=== PATIENT | female | born 1980 | race Caucasian/White ===

== ENCOUNTER 2022-10-23 10:35 | Outpatient (OUT) | payer OTHER, SELFPAY ==
[2022-10-23 11:46] LABS: Anion Gap 12.3; BUN Creatinine Ratio 14.1; Calcium 9.4 mg/dL (8.5-10.1); Carbon Dioxide 27.8 mmol/L (21.0-32.0); Chloride 103 mmol/L (98-107); Estimated GFR (African America >60 (>=60); Estimated GFR (Non-African Ame >60 (>=60); Glucose 108 mg/dL (74-106); Potassium 4.1 mmol/L (3.5-5.1); Sodium 139 mmol/L (136-145)
[2022-10-23 12:12] LABS: Estimated Average Glucose 111 mg/dL; Glycohemoglobin A1C 5.5 % (4.5-6.2)
== END 2022-10-23 10:36 | disposition home or self-care (01) ==
LOC: LAB 10:42
PROVIDERS: PCP Family Medicine; Visit Provider Nurse Practitioner
DX: E11.65 Type 2 diabetes mellitus with hyperglycemia (principal)
CPT/HCPCS: 36415; 80048; 83036

== ENCOUNTER 2023-03-27 08:23 | Outpatient (OUT) | payer OTHER, SELFPAY ==
[2023-03-27 09:04] LABS: Basophils Absolute Auto 0.1 10^3/uL (0.0-0.1); Basophils Percent Auto 1.4 % (0.2-2.0); Eosinophils Absolute Auto 0.2 10^3/uL (0.0-0.7); Eosinophils Percent Auto 2.3 % (0.9-7.0); Hematocrit 45.5 % (36.0-48.0); Hemoglobin 14.5 g/dL (12.0-16.0); Immature Granulocytes Abs Auto 0.02 10^3/uL (0.00-0.03); Immature Granulocytes Pct Auto 0.2 % (0.0-0.5); Lymphocytes Absolute Auto 2.2 10^3/uL (1.2-3.8); Lymphocytes Percent Auto 23.3 % (20.5-60.0); Mean Corpuscular HGB Conc 31.9 g/dL (29.9-35.2); Mean Corpuscular Hemoglobin 28.4 pg (26.7-34.0); Mean Platelet Volume 10.2 fL (9.5-13.5); Monocytes Absolute Auto 0.4 10^3/uL (0.3-0.8); Monocytes Percent Auto 4.7 % (1.7-12.0); Neutrophils Absolute Auto 6.4 10^3/uL (1.4-6.5); Neutrophils Percent Auto 68.1 % (43.0-75.0); Platelet Count 271 10^3/uL (150-450); Red Blood Count 5.11 10^6/uL (4.20-5.40); Red Cell Distribution Width 12.6 % (11.0-15.0); White Blood Count 9.4 10^3/uL (4.0-11.0)
[2023-03-27 09:05] LABS: Bilirubin Urine NEGATIVE (NEGATIVE); Blood Urine NEGATIVE (NEGATIVE); Clarity Urine CLEAR (CLEAR); Color Urine YELLOW (YELLOW); Glucose Urine UA NEGATIVE (NEGATIVE); Ketones Urine NEGATIVE (NEGATIVE); Leukocyte Esterase Urine NEGATIVE (NEGATIVE); Nitrite Urine NEGATIVE (NEGATIVE); Protein Urine NEGATIVE (NEG/TRACE); Specific Gravity Urine >=1.030 (1.005-1.025); Urobilinogen Urine 0.2 EU/dL (0.2-1.0)
[2023-03-27 09:18] LABS: Microalbumin Urine Random 1.7 mg/dL (<=30.0)
[2023-03-27 09:36] LABS: Bacteria Urine TRACE #/HPF (NONE SEEN); Cast Seen? NONE SEEN #/LPF (NONE SEEN); Crystals Seen? None Seen #/HPF (None Seen); Mucus Urine NONE SEEN (NONE SEEN); RBC Urine 0-2 #/HPF (0-2); Squamous Epithelial Cell Urine FEW #/LPF (NONE/RARE); WBC Urine 0-2 #/HPF (NONE SEEN)
[2023-03-27 11:02] LABS: Estimated Average Glucose 137 mg/dL; Glycohemoglobin A1C 6.4 % (4.5-6.2)
[2023-03-27 12:15] LABS: Alanine Aminotransferase 59 U/L (14-59); Albumin Globulin Ratio 0.9; Albumin Level 3.8 g/dL (3.4-5.0); Alkaline Phosphatase 65 U/L (46-116); Anion Gap 12.4; Aspartate Amino Transferase 25 U/L (15-37); Bilirubin Total 0.5 mg/dL (0.2-1.0); Calcium 8.7 mg/dL (8.5-10.1); Carbon Dioxide 28.3 mmol/L (21.0-32.0); Chloride 103 mmol/L (98-107); Chol HDL Ratio 4.8; Cholesterol 169 mg/dL (<=200); Estimated GFR (African America >60 (>=60); Estimated GFR (Non-African Ame >60 (>=60); Glucose 120 mg/dL (74-106); HDL Cholesterol 35 mg/dL (40-60); Potassium 3.7 mmol/L (3.5-5.1); Sodium 140 mmol/L (136-145); Thyroid Stimulating Hormone 2.398 uIU/mL (0.358-3.740); Total Protein 7.8 g/dL (6.4-8.2); Triglycerides 254 mg/dL (<=150); VLDL CHOLESTEROL 50.8 mg/dL
== END 2023-03-27 08:24 | disposition home or self-care (01) ==
LOC: LAB 08:27
PROVIDERS: PCP Family Medicine; Visit Provider Nurse Practitioner
DX: E11.65 Type 2 diabetes mellitus with hyperglycemia (principal); E78.5 Hyperlipidemia, unspecified; E61.1 Iron deficiency
CPT/HCPCS: 36415; 80053; 80061; 81001; 82043; 82728; 83036; 83540; 84443; 85025

== ENCOUNTER 2023-07-06 07:38 | Outpatient (OUT) | payer OTHER, SELFPAY ==
--- OUTSIDE RECORDS SUMMARY | 2023-07-06 07:42 | XMS_ITS | CCD ---
Author Name Unknown Address [address] [place] [address] Organization [facility] Care Team Providers Care Grocery Checker Name Role Phone RAYMOND MAR Unavailable Unavailabl e AICHHOLZ, WIRE STRIPPING MACHINE OPERATOR SHANICE Attending Unavailable AICHHOLZ, WIRE STRIPPING MACHINE OPERATOR SHANICE Admitting Unavailable AICHHOLZ, WIRE STRIPPING MACHINE OPERATOR SHANICE Primary Care Unavailable AICHHOLZ, WIRE STRIPPING MACHINE OPERATOR SHANICE Consulting Unavailable AICHHOLZ, WIRE STRIPPING MACHINE OPERATOR SHANICE Consulting Unavailable AICHHOLZ, WIRE STRIPPING MACHINE OPERATOR SHANICE Attending Unavailable AICHHOLZ, WIRE STRIPPING MACHINE OPERATOR SHANICE Admitting Unavailable AICHHOLZ, WIRE STRIPPING MACHINE OPERATOR SHANICE Primary Care Unavailable AICHHOLZ, WIRE STRIPPING MACHINE OPERATOR SHANICE Consulting Unavailable AICHHOLZ, WIRE STRIPPING MACHINE OPERATOR SHANICE Attending Unavailable AICHHOLZ, WIRE STRIPPING MACHINE OPERATOR SHANICE Admitting Unavailable AICHHOLZ, WIRE STRIPPING MACHINE OPERATOR SHANICE Primary Care Unavailable AICHHOLZ, WIRE STRIPPING MACHINE OPERATOR SHANICE Attending Unavailable AICHHOLZ, WIRE STRIPPING MACHINE OPERATOR SHANICE Admitting Unavailable AICHHOLZ, WIRE STRIPPING MACHINE OPERATOR SHANICE Primary Care Unavailable Aichholz CLIENT SERVICES MANAGER, Shanice Unavailable Raymond Mar MD Primary Care Provider AICHHOLTiffani, SHANICE Attending Unavailable Allergies Allergy Classification Reported Allergen(s) Allergy Type Date of Onset Reaction(s) Facility (3 sources) Acetaminophen Drug Allergy 4 GI intolerance [facility] Medications Current Medications Medication Drug Class(es) Dates Sig (Normalized) Sig (Original) atorvastatin 10 mg oral tablet (5 sources) HMG-CoA Reductase Inhibitor Start: 02-25-2023 End: 09-10-2023 take 1 tablet by mouth in the morning atorvastatin (Lipitor) 10 MG tablet Indications: Type 2 diabetes mellitus treated without insulin (CMS/HCC) Take 1 tablet (10 mg) by mouth in the morning. Take 10 mg by mouth in the morning.. 90 tablet 1 06/12/2023 09/10/2023 Active cetirizine hydrochloride 10 mg oral tablet (3 sources) Histamine-1 Receptor Antagonist Start: 10-19-2022 take 1 tablet by mouth in the morning cetirizine (ZyrTEC) 10 MG tablet Take 10 mg by mouth in the morning. 0 10/19/2022 Active 0.5 ml dulaglutide 1.5 mg/ml auto-injector (5 sources) GLP-1 Receptor Agonist Start: 03-28-2023 End: 09-04-2023 inject 0.75 mg by subcutaneous injection every week, then inject 0.75 mg by subcutaneous injection every week dulaglutide (Trulicity) 0.75 MG/0.5ML solution pen-injector Indications: Type 2 diabetes mellitus treated without insulin (CMS/HCC) Inject 0.75 mg under the skin 1 (one) time per week Inject 0.75 mg under the skin 1 (one) time per week for 28 days. 12 each 1 06/12/2023 09/04/2023 Active ferrous sulfate 325 mg oral tablet (3 sources) Start: 07-25-2022 take 1 tablet by mouth at mealtime FeroSul 325 (65 Fe) MG tablet Take 325 mg by mouth in the morning. Take with meals. 0 07/25/2022 Active ketoconazole 20 mg/ml medicated shampoo (3 sources) Azole Antifungal Start: 03-08-2023 ketoconazole (NIZOral) 2 % shampoo Apply 1 application topically 2 (two) times a week 0 03/08/2023 Active lisinopril 5 mg oral tablet (5 sources) Angiotensin Converting Enzyme Inhibitor Start: 06-27-2022 End: 09-10-2023 take 1 tablet by mouth in the morning lisinopril 5 MG tablet Indications: Type 2 diabetes mellitus treated without insulin (CMS/HCC) Take 1 tablet (5 mg) by mouth in the morning. Take 5 mg by mouth in the morning.. 90 tablet 1 06/12/2023 09/10/2023 Active metFORMIN hydrochloride 500 mg oral tablet (3 sources) Biguanide Start: 05-10-2023 take 1 tablet by mouth in the morning metFORMIN (Glucophage) 500 MG tablet Indications: Type 2 diabetes mellitus without complication, without long-term current use of insulin (CMS/HCC) Take 1 tablet (500 mg) by mouth in the morning and 1 tablet (500 mg) before bedtime. 60 tablet 3 05/10/2023 Active omeprazole 40 mg delayed release oral capsule (5 sources) Proton Pump Inhibitor Start: 09-20-2022 End: 09-10-2023 take 1 capsule by mouth in the morning omeprazole (PriLOSEC) [address] capsule Indications: GERD without esophagitis Take 1 capsule (40 mg) by mouth in the morning. Take before meals. Take 40 mg by mouth in the morning. Take before meals.. 90 capsule 1 06/12/2023 09/10/2023 Active Problems Active Problems Problem Classification Problem Date Documented Date Episodic/Chronic Abdominal hernia (3 sources) Umbilical hernia; Translations: [Umbilical hernia without obstruction or gangrene] Onset: 06-12-2023 06-12-2023 Episodic Diabetes mellitus with complications (4 sources) Type 2 diabetes mellitus with hyperglycemia; Translations: [TYPE 2 DM W/HYPERGLYCEMIA] Onset: 05-23-2022 Chronic Diabetes mellitus without complication (7 sources) Type 2 diabetes mellitus without complication; Translations: [Type 2 diabetes mellitus without complications] Onset: 05-10-2023 05-10-2023 Chronic Disorders of lipid metabolism (3 sources) Dyslipidemia; Translations: [Hyperlipidemia, unspecified] Onset: 06-12-2023 06-12-2023 Chronic Esophageal disorders (5 sources) Gastroesophageal reflux disease without esophagitis; Translations: [Gastro-esophageal reflux disease without esophagitis] Onset: 06-12-2023 06-12-2023 Chronic Malaise and fatigue (1 source) Other fatigue; Translations: [OTHER FATIGUE] Onset: 05-24-2022 Episodic Nutritional deficiencies (3 sources) Iron deficiency; Translations: [Iron deficiency] Onset: 06-12-2023 06-12-2023 Episodic Other nutritional; endocrine; and metabolic disorders (5 sources) Body mass index 30+ - obesity; Translations: [Obesity, unspecified] Onset: 06-12-2023 06-12-2023 Chronic Other screening for suspected conditions (not mental disorders or infectious disease) (7 sources) Abnormal results of thyroid function studies; Translations: [Thyroid function tests abnormal] Onset: 07-27-2021 06-12-2023 Episodic Other upper respiratory disease (3 sources) Allergic rhinitis; Translations: [Allergic rhinitis, unspecified] Onset: 06-12-2023 06-12-2023 Chronic Past or Other Problems Problem Classification Problem Date Documented Date Episodic/Chronic Noninfectious gastroenteritis (1 source) Noninfective gastroenteritis and colitis, unspecified; Translations: [Noninfective gastroenteritis and colitis, unspecified] Onset: 06-29-2017 Episodic Results Test Name Value Interpretation Reference Range Facility CBC AUTO DIFFon 05-23-2022 BASO # 0.1 103/ul Normal 0.0-0.1 Comment on above: Performed By: #### F T4 #### [facility] [address] [address] [address] Eulogio Gil Basophils/100 WBC (Bld) 1.4 % Normal 0.2-2.0 Comment on above: Performed By: #### F T4 #### [facility] [address] [place] [address] Dr. Eulogio Gil EO # 0.2 103/ul Normal 0.0-0.7 [facility] Comment on above: Performed By: #### F T4 #### [facility] [address] [address] [address] Eulogio Gil Eosinophils/100 WBC (Bld) 1.7 % Normal 0.9-7.0 Comment on above: Performed By: #### F T4 #### [facility] [address] [place] [address] Dr. Eulogio Gil Erythrocyte distribution width (RBC) [Ratio] 12.6 % Normal 11.0-15.0 [facility] Comment on above: Performed By: #### F T4 #### [facility] [address] [place] [address] Dr. Eulogio Gil Hematocrit (Bld) [Volume fraction] 48.2 % Critically high 36.0-48.0 Comment on above: Performed By: #### F T4 #### [facility] [address] [place] [address] Dr. Eulogio Gil Hemoglobin (Bld) [Mass/Vol] 15.4 g/dL Normal 12.0-16.0 Comment on above: Performed By: #### F T4 #### [facility] [address] [place] [address] Dr. Eulogio Gil IG # 0.04 10e3/ul Critically high 0.00-0.03 [facility] Comment on above: Performed By: #### F T4 #### [facility] [address] [place] [address] Dr. Eulogio Gil IG % 0.4 % Normal 0.0-0.5 Comment on above: Performed By: #### F T4 #### [facility] [address] [place] [address] Dr. Eulogio Gil LYMPH # 2.0 103/ul Normal 1.2-3.8 Comment on above: Performed By: #### F T4 #### [facility] [address] [place] [address] Dr. Eulogio Gil Lymphocytes/100 WBC (Bld) 20.0 % Critically low 20.5-60.0 Comment on above: Performed By: #### F T4 #### [facility] [address] [place] [address] Dr. Eulogio Gil MANUAL DIFF REQ NO Normal [facility] Comment on above: Performed By: #### F T4 #### [facility] [address] [place] [address] Dr. Eulogio Gil MCH (RBC) [Entitic mass] 27.4 pg Normal 26.7-34.0 Comment on above: Performed By: #### F T4 #### [facility] [address] [place] [address] Dr. Eulogio Gil MCHC (RBC) [Mass/Vol] 32.0 g/dL Normal 29.9-35.2 [facility] Comment on above: Performed By: #### F T4 #### [facility] [address] [place] [address] Dr. Eulogio Gil MCV (RBC) [Entitic vol] 85.6 fL Normal 81.0-99.0 Comment on above: Performed By: #### F T4 #### [facility] [address] [place] [address] Dr. Eulogio Gil MONO # 0.4 103/ul Normal 0.3-0.8 [facility] Comment on above: Performed By: #### F T4 #### [facility] [address] [place] [address] Dr. Eulogio Gil Monocytes/100 WBC (Bld) 4.3 % Normal 1.7-12.0 [facility] Comment on above: Performed By: #### F T4 #### [facility] [address] [place] [address] Dr. Eulogio Gil NEUT # 7.3 103/ul Critically high 1.4-6.5 [facility] Comment on above: Performed By: #### F T4 #### [facility] [address] [place] [address] Dr. Eulogio Gil Neutrophils/100 WBC (Bld) 72.2 % Normal 43.0-75.0 [facility] Comment on above: Performed By: #### F T4 #### [facility] [address] [place] [address] Dr. Eulogio Gil Platelet mean volume (Bld) [Entitic vol] 10.7 fL Normal 9.5-13.5 Comment on above: Performed By: #### F T4 #### [facility] [address] [place] [address] Dr. Eulogio Gil PLT 238 103/ul Normal 150-450 [facility] Comment on above: Performed By: #### F T4 #### [facility] [address] [place] [address] Dr. Eulogio Gil RBC 5.63 106/ul Critically high 4.20-5.40 [facility] Comment on above: Performed By: #### F T4 #### [facility] [address] [place] [address] Dr. Eulogio Gil WBC 10.1 103/ul Normal 4.0-11.0 [facility] Comment on above: Performed By: #### F T4 #### [facility] [address] [place] [address] Dr. Eulogio Gil FREE T4on 05-23-2022 Free T4 [Mass/Vol] 0.99 ng/dL Normal 0.76-1.46 [facility] Comment on above: Performed By: #### F T4 #### [facility] [address] [address] [address] Eulogio Gil GLYCOHEMOGLOBIN A1Con 2022 ADA RECOMMENDATION SEE BELOW Normal [facility] Comment on above: Result Comment: ADA RECOMMENDED LIMIT 4.0 - 6.0 ADA THERAPEUTIC TARGET < 7.0 ACTION SUGGESTED > 7.0 Performed By: #### F T4 #### [facility] [address] [address] [address] Eulogio Gil Glucose [Mass/Vol] 117 mg/dL Normal [facility] Comment on above: Performed By: #### F T4 #### [facility] [address] [address] [address] Eulogio Gil HbA1c (Bld) [Mass fraction] 5.7 % Normal 4.5-6.2 Comment on above: Performed By: #### F T4 #### [facility] [address] [address] [address] Euloigo Gil IRONon 05-23-2022 Iron [Mass/Vol] 45.0 ug/dL Critically low 50.0-170.0 [facility] Comment on above: Performed By: #### F T4 #### [facility] [address] [address] [address] Eulogio Gil LIPID PROFILEon 05-23-2022 CHOL-HDL RATIO NORM SEE BELOW Normal [facility] Comment on above: Result Comment: 3.3 - 4.4 LOW RISK 4.4 - 7.1 AVERAGE RISK 7.1 - 11.0 MODERATE RISK >11.0 HIGH RISK Performed By: #### L IPID, CMP, TSH #### [facility] [address] [address] [address] Eulogio Gil Cholesterol [Mass/Vol] 127 mg/dL Normal <=200 Comment on above: Performed By: #### L IPID, CMP, TSH #### [facility] [address] [address] [address] Eulogio Gil Cholesterol in HDL [Mass/Vol] 34 mg/dL Critically low 40-60 [facility] Comment on above: Performed By: #### L IPID, CMP, TSH #### [facility] [address] [address] [address] Eulogio Gil Cholesterol in LDL [Mass/Vol] 56.0 mg/dL Normal [facility] Comment on above: Performed By: #### L IPID, CMP, TSH #### [facility] [address] [address] [address] Eulogio Gil Cholesterol.total/Cho lesterol in HDL [Mass ratio] 3.7 {ratio} Normal Comment on above: Performed By: #### L IPID, CMP, TSH #### [facility] [address] [address] [address] Eulogio Gil HDL NORMAL > or = 60 mg/dl - LO W CARDIOVASCULAR RISK <40 mg/dl - HIGH CARDIOVASCULAR RISK Normal Comment on above: Performed By: #### L IPID, CMP, TSH #### [facility] [address] [address] [address] Eulogio Gil LDL CALC NORMAL SEE BELOW Normal [facility] Comment on above: Result Comment: <100 mg/dl OPTIMAL 100 - 129 mg/dl NEAR OR ABOVE OPTIMAL 130 - 159 mg/dl BORDERLINE HIGH 160 - 189 mg/dl HIGH >190 mg/dl VERY HIGH Performed By: #### L IPID, CMP, TSH #### [facility] [address] [address] [address] Eulogio Gil Triglyceride [Mass/Vol] 185 mg/dL Critically high <=150 [facility] Comment on above: Performed By: #### L IPID, CMP, TSH #### [facility] [address] [address] [address] Eulogio Gil VLDL CALC 37.0 mg/dL Normal Comment on above: Performed By: #### L IPID, CMP, TSH #### [facility] [address] [address] [address] Eulogio Gil MICROALBUMIN, RAND URon 05-01 mALB 9.1 mg/L Normal <=30.0 Comment on above: Performed By: #### F T4 #### [facility] [address] [address] [address] Eulogio Gil PROF 14(COMP METB)on 023 Albumin [Mass/Vol] 4.2 g/dL Normal 3.4-5.0 [facility] Comment on above: Performed By: #### L IPID, CMP, TSH #### [facility] [address] [address] [address] Eulogio Gil Albumin/Globulin [Mass ratio] 1.0 {ratio} Normal Comment on above: Performed By: #### L IPID, CMP, TSH #### [facility] [address] [address] [address] Eulogio Gil ALP [Catalytic activity/Vol] 86 U/L Normal 46-116 Comment on above: Performed By: #### L IPID, CMP, TSH #### [facility] [address] [address] [address] Eulogio Gil ALT [Catalytic activity/Vol] 50 U/L Normal 14-59 Comment on above: Performed By: #### L IPID, CMP, TSH #### [facility] [address] [address] [address] Eulogio Gil Anion gap [Moles/Vol] 13.4 mmol/L Normal [facility] Comment on above: Performed By: #### L IPID, CMP, TSH #### [facility] [address] [address] [address] Eulogio Gil AST [Catalytic activity/Vol] 28 U/L Normal 15-37 Comment on above: Performed By: #### L IPID, CMP, TSH #### [facility] [address] [address] [address] Eulogio Gil Bilirubin [Mass/Vol] 0.6 mg/dL Normal 0.2-1.0 Comment on above: Performed By: #### L IPID, CMP, TSH #### [facility] [address] [address] [address] Eulogio Gil Calcium [Mass/Vol] 9.6 mg/dL Normal 8.5-10.1 [facility] Comment on above: Performed By: #### L IPID, CMP, TSH #### [facility] [address] [address] [address] Eulogio Gil Chloride [Moles/Vol] 101 mmol/L Normal 98-107 Comment on above: Performed By: #### L IPID, CMP, TSH #### [facility] [address] [address] [address] Eulogio Gil CO2 [Moles/Vol] 28.7 mmol/L Normal 21.0-32.0 [facility] Comment on above: Performed By: #### L IPID, CMP, TSH #### [facility] [address] [place] [address] Dr. Eulogio Gil Creatinine [Mass/Vol] 0.90 mg/dL Normal 0.55-1.02 Comment on above: Performed By: #### L IPID, CMP, TSH #### [facility] [address] [place] [address] Dr. Eulogio Gil EGFR-AF INDIAN >60 Normal >=60 [facility] Comment on above: Performed By: #### L IPID, CMP, TSH #### [facility] [address] [place] [address] Dr. Eulogio Gil EGFR-NON AF INDIAN >60 Normal >=60 Comment on above: Performed By: #### L IPID, CMP, TSH #### [facility] [address] [address] [address] Eulogio Gil Globulin (S) [Mass/Vol] 4.2 g/dL Normal Comment on above: Performed By: #### L IPID, CMP, TSH #### [facility] [address] [address] [address] Eulogio Gil Glucose [Mass/Vol] 104 mg/dL Normal 74-106 [facility] Comment on above: Performed By: #### L IPID, CMP, TSH #### [facility] [address] [place] [address] Dr. Eulogio Gil Potassium [Moles/Vol] 4.1 mmol/L Normal 3.5-5.1 Comment on above: Performed By: #### L IPID, CMP, TSH #### [facility] [address] [place] [address] Dr. Eulogio Gil Protein [Mass/Vol] 8.4 g/dL Critically high 6.4-8.2 [facility] Comment on above: Performed By: #### L IPID, CMP, TSH #### [facility] [address] [place] [address] Dr. Eulogio Gil Sodium [Moles/Vol] 139 mmol/L Normal 136-145 [facility] Comment on above: Performed By: #### L IPID, CMP, TSH #### [facility] [address] [place] [address] Dr. Eulogio Gil Urea nitrogen [Mass/Vol] 9.0 mg/dL Normal 7.0-18.0 Comment on above: Performed By: #### L IPID, CMP, TSH #### [facility] [address] [place] [address] Dr. Eulogio Gil Urea nitrogen/Creatinine [Mass ratio] 10.0 mg/mg Normal Comment on above: Performed By: #### L IPID, CMP, TSH #### [facility] [address] [place] [address] Dr. Eulogio Gil TSHon 05-23-2022 TSH 1.312 uIU/mL Normal 0.358-3.740 [facility] Comment on above: Performed By: #### L IPID, CMP, TSH #### [facility] [address] [place] [address] Dr. Eulogio Gil UA RANDOM W/MICROSCOPICon BACTERIA SMALL Abnormal NONE SEEN [facility] Comment on above: Performed By: #### U AMIC #### [facility] [address] [address] [address] Eulogio Gil Bilirubin Ql (U) SMALL Abnormal NEGATIVE [facility] Comment on above: Performed By: #### U AMIC #### [facility] [address] [address] [address] Eulogio Gil CAST SEEN Abnormal NONE SEEN Comment on above: Performed By: #### U AMIC #### [facility] [address] [address] [address] Eulogio Gil Clarity (U) CLEAR Normal CLEAR [facility] Comment on above: Performed By: #### U AMIC #### [facility] [address] [address] [address] Eulogio Gil Color (U) DK. YELLOW Normal YELLOW [facility] Comment on above: Performed By: #### U AMIC #### [facility] [address] [address] [address] Eulogio Gil Crystals LM Nom (Urine sed) NONE SEEN Normal NONE SEEN Comment on above: Performed By: #### U AMIC #### [facility] [address] [address] [address] Eulogio Gil Epithelial cells LM Ql (Urine sed) FEW Abnormal NONE SEEN /RARE [facility] Comment on above: Performed By: #### U AMIC #### [facility] [address] [address] [address] Eulogio Gil Glucose Ql (U) Negative Normal NEGATIVE [facility] Comment on above: Performed By: #### U AMIC #### [facility] [address] [address] [address] Eulogio Gil Hemoglobin Ql (U) Negative Normal NEGATIVE [facility] Comment on above: Performed By: #### U AMIC #### [facility] [address] [address] [address] Eulogio Gil HYALINE CAST FEW Normal [facility] Comment on above: Performed By: #### U AMIC #### [facility] [address] [address] [address] Eulogio Gil Ketones Ql (U) Negative Normal NEGATIVE [facility] Comment on above: Performed By: #### U AMIC #### [facility] [address] [place] [address] Dr. Eulogio Gil LEUKOCYTES Negative Normal NEGATIVE [facility] Comment on above: Performed By: #### U AMIC #### [facility] [address] [place] [address] Dr. Eulogio Gil MUCOUS TRACE Abnormal NONE SEEN [facility] Comment on above: Performed By: #### U AMIC #### [facility] [address] [place] [address] Dr. Eulogio Gil Nitrite Ql (U) Negative Normal NEGATIVE [facility] Comment on above: Performed By: #### U AMIC #### [facility] [address] [place] [address] Dr. Eulogio Gil pH (U) 5.5 [pH] Normal 5-9 [facility] Comment on above: Performed By: #### U AMIC #### [facility] [address] [place] [address] Dr. Eulogio Gil RBC NONE SEEN Abnormal 0-2 [facility] Comment on above: Performed By: #### U AMIC #### [facility] [address] [place] [address] Dr. Eulogio Gil SPEC GRAVITY >=1.030 Abnormal 1.005-<=1.025 [facility] Comment on above: Performed By: #### U AMIC #### [facility] [address] [place] [address] Dr. Eulogio Gil UA PROTEIN 30 mg/dl Abnormal NEGATIVE/ TRACE [facility] Comment on above: Performed By: #### U AMIC #### [facility] [address] [place] [address] Dr. Eulogio Gil Urobilinogen Qn (U) 0.2 {Rosie'U}/dL Normal 0.2 - 1. 0 Comment on above: Performed By: #### U AMIC #### [facility] [address] [place] [address] Dr. Eulogio Gil WBC 0-2 Abnormal NONE SEEN [facility] Comment on above: Performed By: #### U AMIC #### [facility] [address] [address] [address] Eulogio iGl VITAMIN B12on 05-23-2022 Cobalamin (Vitamin B12) [Mass/Vol] 393.0 pg/mL Normal 193.0-986.0 Comment on above: Performed By: #### F T4 #### [facility] [address] [address] [address] Eulogio Gil GLYCOHEMOGLOBIN A1Con 2021 ADA RECOMMENDATION SEE BELOW Normal [facility] Comment on above: Result Comment: ADA RECOMMENDED LIMIT 4.0 - 6.0 ADA THERAPEUTIC TARGET < 7.0 ACTION SUGGESTED > 7.0 Performed By: #### F T4 #### [facility] [address] [place] [address] Dr. Eulogio Gil Glucose [Mass/Vol] 140 mg/dL Normal [facility] Comment on above: Performed By: #### F T4 #### [facility] [address] [place] [address] Dr. Eulogio Gil HbA1c (Bld) [Mass fraction] 6.5 % Critically high 4.5-6.2 Comment on above: Performed By: #### F T4 #### [facility] [address] [place] [address] Dr. Eulogio Gil PROF CHEM 8 (BAS METB)on Anion gap [Moles/Vol] 12.5 mmol/L Normal [facility] Comment on above: Performed By: #### B MP #### [facility] [address] [place] [address] Dr. Eulogio Gil Calcium [Mass/Vol] 9.1 mg/dL Normal 8.5-10.1 [facility] Comment on above: Performed By: #### B MP #### [facility] [address] [place] [address] Dr. Eulogio Gil Chloride [Moles/Vol] 104 mmol/L Normal 98-107 [facility] Comment on above: Performed By: #### B MP #### [facility] [address] [address] [address] Eulogio Gil CO2 [Moles/Vol] 26.7 mmol/L Normal 21.0-32.0 [facility] Comment on above: Performed By: #### B MP #### [facility] [address] [address] [address] Eulogio Gil Creatinine [Mass/Vol] 0.90 mg/dL Normal 0.55-1.02 Comment on above: Performed By: #### B MP #### [facility] [address] [address] [address] Eulogio Gil EGFR-AF INDIAN >60 Normal >=60 [facility] Comment on above: Performed By: #### B MP #### [facility] [address] [address] [address] Eulogio Gil EGFR-NON AF INDIAN >60 Normal >=60 Comment on above: Performed By: #### B MP #### [facility] [address] [address] [address] Eulogio Gil Glucose [Mass/Vol] 123 mg/dL Critically high 74-106 [facility] Comment on above: Performed By: #### B MP #### [facility] [address] [address] [address] Eulogio Gil Potassium [Moles/Vol] 4.2 mmol/L Normal 3.5-5.1 Comment on above: Performed By: #### B MP #### [facility] [address] [address] [address] Eulogio Gil Sodium [Moles/Vol] 139 mmol/L Normal 136-145 [facility] Comment on above: Performed By: #### B MP #### [facility] [address] [address] [address] Eulogio Gil Urea nitrogen [Mass/Vol] 12.0 mg/dL Normal 7.0-18.0 Comment on above: Performed By: #### B MP #### [facility] [address] [place] [address] Dr. Eulogio Gil Urea nitrogen/Creatinine [Mass ratio] 13.3 mg/mg Normal [facility] Comment on above: Performed By: #### B MP #### [facility] [address] [place] [address] Dr. Eulogio Gil CBC AUTO DIFFon 07-25-2021 BASO # 0.1 103/ul Normal 0.0-0.1 Comment on above: Performed By: #### C BC #### [facility] [address] [place] [address] Dr. Eulogio Gil Basophils/100 WBC (Bld) 1.4 % Normal 0.2-2.0 [facility] Comment on above: Performed By: #### C BC #### [facility] [address] [place] [address] Dr. Eulogio Gil EO # 0.1 103/ul Normal 0.0-0.7 [facility] Comment on above: Performed By: #### C BC #### [facility] [address] [place] [address] Dr. Eulogio Gil Eosinophils/100 WBC (Bld) 1.3 % Normal 0.9-7.0 [facility] Comment on above: Performed By: #### C BC #### [facility] [address] [place] [address] Dr. Eulogio Gil Erythrocyte distribution width (RBC) [Ratio] 13.0 % Normal 11.0-15.0 [facility] Comment on above: Performed By: #### C BC #### [facility] [address] [place] [address] Dr. Eulogio Gil Hematocrit (Bld) [Volume fraction] 44.3 % Normal 36.0-48.0 [facility] Comment on above: Performed By: #### C BC #### [facility] [address] [place] [address] Dr. Eulogio Gil Hemoglobin (Bld) [Mass/Vol] 14.1 g/dL Normal 12.0-16.0 [facility] Comment on above: Performed By: #### C BC #### [facility] [address] [place] [address] Dr. Eulogio Gil IG # 0.03 10e3/ul Normal 0.00-0.03 Comment on above: Performed By: #### C BC #### [facility] [address] [place] [address] Dr. Eulogio Gil IG % 0.3 % Normal 0.0-0.5 Comment on above: Performed By: #### C BC #### [facility] [address] [place] [address] Dr. Eulogio Gil LYMPH # 1.9 103/ul Normal 1.2-3.8 Comment on above: Performed By: #### C BC #### [facility] [address] [place] [address] Dr. Eulogio Gil Lymphocytes/100 WBC (Bld) 20.3 % Critically low 20.5-60.0 Comment on above: Performed By: #### C BC #### [facility] [address] [place] [address] Dr. Eulogio Gil MANUAL DIFF REQ NO Normal [facility] Comment on above: Performed By: #### C BC #### [facility] [address] [place] [address] Dr. Eulogio Gil MCH (RBC) [Entitic mass] 27.8 pg Normal 26.7-34.0 Comment on above: Performed By: #### C BC #### [facility] [address] [place] [address] Dr. Eulogio Gil MCHC (RBC) [Mass/Vol] 31.8 g/dL Normal 29.9-35.2 [facility] Comment on above: Performed By: #### C BC #### [facility] [address] [place] [address] Dr. Eulogio Gil MCV (RBC) [Entitic vol] 87.4 fL Normal 81.0-99.0 Comment on above: Performed By: #### C BC #### [facility] [address] [place] [address] Dr. Eulogio Gil MONO # 0.4 103/ul Normal 0.3-0.8 Comment on above: Performed By: #### C BC #### [facility] [address] [place] [address] Dr. Eulogio Gil Monocytes/100 WBC (Bld) 3.8 % Normal 1.7-12.0 Comment on above: Performed By: #### C BC #### [facility] [address] [place] [address] Dr. Eulogio Gil NEUT # 6.9 103/ul Critically high 1.4-6.5 [facility] Comment on above: Performed By: #### C BC #### [facility] [address] [place] [address] Dr. Eulogio Gil Neutrophils/100 WBC (Bld) 72.9 % Normal 43.0-75.0 Comment on above: Performed By: #### C BC #### [facility] [address] [place] [address] Dr. Eulogio Gil Platelet mean volume (Bld) [Entitic vol] 12.2 fL Normal 9.5-13.5 Comment on above: Performed By: #### C BC #### [facility] [address] [place] [address] Dr. Eulogio Gil PLT 203 103/ul Normal 150-450 [facility] Comment on above: Performed By: #### C BC #### [facility] [address] [place] [address] Dr. Eulogio Gil RBC 5.07 106/ul Normal 4.20-5.40 [facility] Comment on above: Performed By: #### C BC #### [facility] [address] [place] [address] Dr. Eulogio Gil WBC 9.5 103/ul Normal 4.0-11.0 [facility] Comment on above: Performed By: #### C BC #### [facility] [address] [place] [address] Dr. Eulogio Gil FREE T4on 07-25-2021 Free T4 [Mass/Vol] 0.95 ng/dL Normal 0.78-2.19 [facility] Comment on above: Performed By: #### F T4 #### [facility] [address] [place] [address] Dr. Eulogio Gil GLYCOHEMOGLOBIN A1Con 2021 ADA RECOMMENDATION ADA THERAPEUTIC TARG ET 6.0 - 7.0 ACTION SUGGESTED > 7.0 Normal Comment on above: Performed By: #### A 1C #### [facility] [address] [place] [address] Dr. Eulogio Gil Glucose [Mass/Vol] 143 mg/dL Normal [facility] Comment on above: Performed By: #### A 1C #### [facility] [address] [place] [address] Dr. Eulogio Gil HbA1c (Bld) [Mass fraction] 6.6 % Critically high <=6.0 Comment on above: Performed By: #### A 1C #### [facility] [address] [place] [address] Dr. Eulogio Gil LIPID PROFILEon 07-25-2021 CHOL-HDL RATIO NORM SEE BELOW Normal [facility] Comment on above: Result Comment: 3.3 - 4.4 LOW RISK 4.4 - 7.1 AVERAGE RISK 7.1 - 11.0 MODERATE RISK >11.0 HIGH RISK Performed By: #### F T4 #### [facility] [address] [place] [address] Dr. Eulogio Gil Cholesterol [Mass/Vol] 167 mg/dL Normal <=200 Comment on above: Performed By: #### F T4 #### [facility] [address] [place] [address] Dr. Eulogio Gil Cholesterol in HDL [Mass/Vol] 34 mg/dL Critically low 40-60 Comment on above: Performed By: #### F T4 #### [facility] [address] [place] [address] Dr. Eulogio Gil Cholesterol in LDL [Mass/Vol] 86.8 mg/dL Normal Comment on above: Performed By: #### F T4 #### [facility] [address] [address] [address] Eulogio Gil Cholesterol.total/Cho lesterol in HDL [Mass ratio] 4.9 {ratio} Normal Comment on above: Performed By: #### F T4 #### [facility] [address] [address] [address] Eulogio Gil HDL NORMAL > or = 60 mg/dl - LO W CARDIOVASCULAR RISK <40 mg/dl - HIGH CARDIOVASCULAR RISK Normal Comment on above: Performed By: #### F T4 #### [facility] [address] [address] [address] Eulogio Gil LDL CALC NORMAL SEE BELOW Normal [facility] Comment on above: Result Comment: <100 mg/dl OPTIMAL 100 - 129 mg/dl NEAR OR ABOVE OPTIMAL 130 - 159 mg/dl BORDERLINE HIGH 160 - 189 mg/dl HIGH >190 mg/dl VERY HIGH Performed By: #### F T4 #### [facility] [address] [address] [address] Eulogio Gil Triglyceride [Mass/Vol] 231 mg/dL Critically high <=150 [facility] Comment on above: Performed By: #### F T4 #### [facility] [address] [address] [address] Eulogio Gil VLDL CALC 46.2 mg/dL Normal Comment on above: Performed By: #### F T4 #### [facility] [address] [address] [address] Eulogio Gil MICROALBUMIN, RAND URon 06-29 mALB 5.3 mg/L Normal <=30.0 Comment on above: Performed By: #### M ALBR #### [facility] [address] [address] [address] Eulogio Gil PROF 14(COMP METB)on 022 Albumin [Mass/Vol] 3.9 g/dL Normal 3.4-5.0 [facility] Comment on above: Performed By: #### F T4 #### [facility] [address] [address] [address] Eulogio Gil Albumin/Globulin [Mass ratio] 0.9 {ratio} Normal Comment on above: Performed By: #### F T4 #### [facility] [address] [place] [address] Dr. Eulogio Gil ALP [Catalytic activity/Vol] 54 U/L Normal 46-116 Comment on above: Performed By: #### F T4 #### [facility] [address] [place] [address] Dr. Eulogio Gil ALT [Catalytic activity/Vol] 25 U/L Normal 14-59 Comment on above: Performed By: #### F T4 #### [facility] [address] [place] [address] Dr. Eulogio Gil Anion gap [Moles/Vol] 15.6 mmol/L Normal [facility] Comment on above: Performed By: #### F T4 #### [facility] [address] [place] [address] Dr. Eulogio Gil AST [Catalytic activity/Vol] 22 U/L Normal 15-37 Comment on above: Performed By: #### F T4 #### [facility] [address] [place] [address] Dr. Eulogio Gil Bilirubin [Mass/Vol] 0.6 mg/dL Normal 0.2-1.3 Comment on above: Performed By: #### F T4 #### [facility] [address] [place] [address] Dr. Eulogio Gil Calcium [Mass/Vol] 9.1 mg/dL Normal 8.5-10.1 [facility] Comment on above: Performed By: #### F T4 #### [facility] [address] [place] [address] Dr. Eulogio Gil Chloride [Moles/Vol] 103 mmol/L Normal 98-107 Comment on above: Performed By: #### F T4 #### [facility] [address] [place] [address] Dr. Eulogio Gil CO2 [Moles/Vol] 23.8 mmol/L Normal 22.0-30.0 [facility] Comment on above: Performed By: #### F T4 #### [facility] [address] [address] [address] Eulogio Gil Creatinine [Mass/Vol] 0.94 mg/dL Normal 0.52-1.04 Comment on above: Performed By: #### F T4 #### [facility] [address] [address] [address] Eulogio Gil EGFR-AF INDIAN >60 Normal >=60 [facility] Comment on above: Performed By: #### F T4 #### [facility] [address] [address] [address] Eulogio Gil EGFR-NON AF INDIAN >60 Normal >=60 Comment on above: Performed By: #### F T4 #### [facility] [address] [address] [address] Eulogio Gil Globulin (S) [Mass/Vol] 4.2 g/dL Normal Comment on above: Performed By: #### F T4 #### [facility] [address] [address] [address] Eulogio Gil Glucose [Mass/Vol] 125 mg/dL Critically high 74-106 [facility] Comment on above: Performed By: #### F T4 #### [facility] [address] [address] [address] Eulogio Gil Potassium [Moles/Vol] 4.4 mmol/L Normal 3.4-5.0 Comment on above: Performed By: #### F T4 #### [facility] [address] [address] [address] Eulogio Gil Protein [Mass/Vol] 8.1 g/dL Normal 6.1-8.2 [facility] Comment on above: Performed By: #### F T4 #### [facility] [address] [address] [address] Eulogio Gil Sodium [Moles/Vol] 138 mmol/L Normal 137-145 [facility] Comment on above: Performed By: #### F T4 #### [facility] [address] [place] [address] Dr. Eulogio Gil Urea nitrogen [Mass/Vol] 9.0 mg/dL Normal 7.0-18.0 [facility] Comment on above: Performed By: #### F T4 #### [facility] [address] [place] [address] Dr. Eulogio Gil Urea nitrogen/Creatinine [Mass ratio] 9.6 mg/mg Normal Comment on above: Performed By: #### F T4 #### [facility] [address] [place] [address] Dr. Eulogio Gil TSHon 07-25-2021 TSH 1.330 uIU/mL Normal 0.470-4.680 [facility] Comment on above: Performed By: #### F T4 #### [facility] [address] [place] [address] Dr. Eulogio Gil TSH RANGE SEE BELOW Normal [facility] Comment on above: Result Comment: <0.3 4 UIU/ml HYPERTHYROID 0.34-5.60 UIU/ml EUTHYROID >5.60 UIU/ml HYPOTHYROID Performed By: #### F T4 #### [facility] [address] [place] [address] Dr. Eulogio Gil UA RANDOM W/MICROSCOPICon AMORPHOUS CRYSTALS MODERATE Normal [facility] Comment on above: Performed By: #### U AMIC #### [facility] [address] [place] [address] Dr. Eulogio Gil BACTERIA TRACE Abnormal NONE SEEN Comment on above: Performed By: #### U AMIC #### [facility] [address] [place] [address] Dr. Eulogio Gil Bilirubin Ql (U) Negative Normal NEGATIVE [facility] Comment on above: Performed By: #### U AMIC #### [facility] [address] [place] [address] Dr. Eulogio Gil CAST NONE SEEN Normal NONE SEEN Comment on above: Performed By: #### U AMIC #### [facility] [address] [place] [address] Dr. Eulogio Gil Clarity (U) CLEAR Normal CLEAR Comment on above: Performed By: #### U AMIC #### [facility] [address] [address] [address] Eulogio Gil Color (U) YELLOW Normal YELLOW Comment on above: Performed By: #### U AMIC #### [facility] [address] [address] [address] Eulogio Gil Crystals LM Nom (Urine sed) SEEN Abnormal NONE SEEN Comment on above: Performed By: #### U AMIC #### [facility] [address] [address] [address] Eulogio Gil Epithelial cells LM Ql (Urine sed) FEW Abnormal NONE SEEN /RARE Comment on above: Performed By: #### U AMIC #### [facility] [address] [place] [address] Dr. Eulogio Gil Glucose Ql (U) Negative Normal NEGATIVE [facility] Comment on above: Performed By: #### U AMIC #### [facility] [address] [place] [address] Dr. Eulogio Gil Hemoglobin Ql (U) TRACE-INTACT Abnormal NEGATIVE [facility] Comment on above: Performed By: #### U AMIC #### [facility] [address] [place] [address] Dr. Eulogio Gil Ketones Ql (U) Negative Normal NEGATIVE [facility] Comment on above: Performed By: #### U AMIC #### [facility] [address] [place] [address] Dr. Eulogio Gil LEUKOCYTES Negative Normal NEGATIVE Comment on above: Performed By: #### U AMIC #### [facility] [address] [place] [address] Dr. Eulogio Gil MUCOUS NONE SEEN Normal NONE SEEN Comment on above: Performed By: #### U AMIC #### [facility] [address] [place] [address] Dr. Eulogio Gil Nitrite Ql (U) Negative Normal NEGATIVE [facility] Comment on above: Performed By: #### U AMIC #### [facility] [address] [address] [address] Eulogio Gil pH (U) 5.5 [pH] Normal 5-9 Comment on above: Performed By: #### U AMIC #### [facility] [address] [address] [address] Eulogio Gil RBC 0-2 Normal 0-2 Comment on above: Performed By: #### U AMIC #### [facility] [address] [address] [address] Eulogio Gil SPEC GRAVITY 1.025 Normal 1.005-<=1.025 [facility] Comment on above: Performed By: #### U AMIC #### [facility] [address] [place] [address] Dr. Eulogio Gil UA PROTEIN Negative Normal NEGATIVE/ TRACE [facility] Comment on above: Performed By: #### U AMIC #### [facility] [address] [address] [address] Eulogio Gil Urobilinogen Qn (U) 0.2 {Rosie'U}/dL Normal 0.2 - 1. 0 Comment on above: Performed By: #### U AMIC #### [facility] [address] [place] [address] Dr. Eulogio Gil WBC 0-2 Abnormal NONE SEEN [facility] Comment on above: Performed By: #### U AMIC #### [facility] [address] [address] [address] Eulogio Gil CBC with Diffon 06-29-2017 Abs. Basophil 0.05 k/uL Normal 0.00-0.20 [facility] Comment on above: Performed By: #### C DP, CP ####[address] [place] [address] Abs.Neutrophil (Seg) 12.92 k/uL High 1.50-8.10 [facility] Comment on above: Performed By: #### C DP, CP ####[address] [place] [address] Basophils/100 WBC Auto (Bld) 0 % Normal 0-2 [facility] Comment on above: Performed By: #### C DP, CP ####[address] [place] [address] Eosinophils 0.15 10*3/uL Normal 0.00-0.44 [facility] Comment on above: Performed By: #### C DP, CP ####[address] [place] [address] Eosinophils/100 leukocytes 1 % Normal 1-4 [facility] Comment on above: Performed By: #### C DP, CP ####[address] [place] [address] Erythrocyte distribution width Auto Ratio (RBC) 13.1 % Normal 11.8-14.4 [facility] Comment on above: Performed By: #### C DP, CP ####[address] [place] [address] Erythrocytes (RBC) 0.0 per [address] [facility] Comment on above: Performed By: #### C DP, CP ####[address] [place] [address] Erythrocytes (RBC) 5.59 10*6/uL High 3.95-5.11 [facility] Comment on above: Performed By: #### C DP, CP ####[address] [place] [address] Granulocytes/100 WBC (Bld) 0.05 k/uL Normal 0.00-0.30 [facility] Comment on above: Result Comment: Perf ormed at [address] [place] [address] Performed By: #### C DP, CP ####[address] [place] [address] Hematocrit (HCT) 47.4 % High 36.3-47.1 [facility] Comment on above: Performed By: #### C DP, CP ####[address] [place] [address] Hemoglobin mass conc (Bld) 14.8 g/dL Normal 11.9-15.1 [facility] Comment on above: Performed By: #### C DP, CP ####[address] [place] [address] Immature granulocytes #/vol (Bld) 0 % Normal 0 [facility] Comment on above: Performed By: #### C DP, CP ####[address] [place] [address] Lymphocytes 0.70 10*3/uL Low 1.10-3.70 [facility] Comment on above: Performed By: #### C DP, CP ####[address] [place] [address] Lymphocytes/100 leukocytes 5 % Low 24-43 [facility] Comment on above: Performed By: #### C DP, CP ####[address] [place] [address] MCH 26.5 pg Normal 25.2-33.5 [facility] Comment on above: Performed By: #### C DP, CP ####[address] [place] [address] MCHC mass conc (RBC) 31.2 g/dL Normal 28.4-34.8 [facility] Comment on above: Performed By: #### C DP, CP ####[address] [place] [address] MCV 84.8 fL Normal 82.6-102.9 [facility] Comment on above: Performed By: #### C DP, CP ####[address] [place] [address] Monocytes 0.51 10*3/uL Normal 0.10-1.20 [facility] Comment on above: Performed By: #### C DP, CP ####[address] [place] [address] Monocytes/100 leukocytes 4 % Normal 3-12 [facility] Comment on above: Performed By: #### C DP, CP ####[address] [place] [address] Neutrophil (Seg) 90 % High 36-65 [facility] Comment on above: Performed By: #### C DP, CP ####[address] [place] [address] Platelet mean volume (PMV) 10.4 fL Normal 8.1-13.5 [facility] Comment on above: Performed By: #### C DP, CP ####[address] [place] [address] Platelets 215 10*3/uL Normal 138-453 [facility] Comment on above: Performed By: #### C DP, CP ####[address] [place] [address] WBC (Leukocytes) 14.4 10*3/uL High 3.5-11.3 [facility] Comment on above: Performed By: #### C DP, CP ####[address] [place] [address] Auto Diff Performed NOT REPORTED Normal [facility] Comment on above: Performed By: #### C DP, CP ####[address] [place] [address] Erythrocyte morphology NOT REPORTED Normal [facility] Comment on above: Performed By: #### C DP, CP ####[address] [place] [address] Platelets NOT REPORTED Normal [facility] Comment on above: Performed By: #### C DP, CP ####[address] [place] [address] WBC Morphology NOT REPORTED Normal [facility] Comment on above: Performed By: #### C DP, CP ####[address] [place] [address] Comp Metabolic Profon 2017 (cont.) Normal [facility] Comment on above: Result Comment: Aver age GFR for 30-39 years old: 107 mL/min/1.73sq mChronic Kidney Disease: <60 mL/min/1.73sq mKidney failure: <15 mL/min/1.73sq meGFR calculated using average adult body mass. Additional eGFR calculator available at:http://www.Culture Kitchen/multiple_crcl_2011.htm Performed By: #### C DP, CP ####[address] [place] [address] Alanine aminotransferase (ALT) 72 U/L High 5-33 [facility] Comment on above: Performed By: #### C DP, CP ####[address] [place] [address] Albumin 4.2 g/dL Normal 3.5-5.2 [facility] Comment on above: Performed By: #### C DP, CP ####[address] [place] [address] Albumin/Globulin Ratio 1.1 {ratio} Normal 1.0-2.5 [facility] Comment on above: Performed By: #### C DP, CP ####[address] [place] [address] Alkaline Phos 59 U/L Normal 35-104 [facility] Comment on above: Performed By: #### C DP, CP ####[address] [place] [address] Anion gap 12 mmol/L Normal 9-17 [facility] Comment on above: Performed By: #### C DP, CP ####[address] [place] [address] Aspartate aminotransferase (AST) 36 U/L High <32 [facility] Comment on above: Performed By: #### C DP, CP ####[address] [place] [address] Bilirubin Ql (U) 0.85 mg/dL Normal 0.3-1.2 [facility] Comment on above: Performed By: #### C DP, CP ####[address] [place] [address] BUN/CRE Ratio 20 Normal 9-20 [facility] Comment on above: Performed By: #### C DP, CP ####[address] [place] [address] Calcium 9.3 mg/dL Normal 8.6-10.4 [facility] Comment on above: Performed By: #### C DP, CP ####[address] [place] [address] Chloride 98 mmol/L Normal 98-107 [facility] Comment on above: Performed By: #### C DP, CP ####[address] [place] [address] CO2 26 mmol/L Normal 20-31 [facility] Comment on above: Performed By: #### C DP, CP ####[address] [place] [address] Creatinine 0.71 mg/dL Normal 0.50-0.90 [facility] Comment on above: Performed By: #### C DP, CP ####[address] , [facility]83 eGFR (non-black) mL/min/{1.73_m2} Normal >60 [facility] Comment on above: Performed By: #### C DP, CP ####[address] [place] [address] Glucose mass conc 123 mg/dL High 70-99 [facility] Comment on above: Performed By: #### C DP, CP ####[address] [place] [address] Potassium molar conc 4.0 mmol/L Normal 3.7-5.3 [facility] Comment on above: Performed By: #### C DP, CP ####[address] [place] [address] Protein 8.2 g/dL Normal 6.4-8.3 [facility] Comment on above: Performed By: #### C DP, CP ####[address] [place] [address] Sodium 136 mmol/L Normal 135-144 [facility] Comment on above: Performed By: #### C DP, CP ####[address] [place] [address] Staging: Normal [facility] Comment on above: Result Comment: Stag e 1: Some kidney damage normal GFRStage 2: Mild kidney damage GFR 60-89Stage 3: Moderate kidney damage GFR 30-59Stage 4: Severe kidney damage GFR 15-29Stage 5: Severe kidney damage GFR <15ESRD - chronic treatment by dialysis or transplantPerformed at [address] [place] [address] Performed By: #### C DP, CP ####[address] [place] [address] Urea nitrogen 14 mg/dL Normal 6-20 [facility] Comment on above: Performed By: #### C DP, CP ####[address] , [place] [phone] Provider Noteon 8 HIM IP Note OR Statistical Clerk Normal [facility] Flu A/B Ag Detectionon 06-29 Flu A/B Ag Detection Specimen Descriptio n .NASOPHARYNGEAL SWABSpecial Requests NOT REPORTEDDirect Exam Presumptive negative for the presence of Influenza A and Influenza B antigen. PCR confirmation of negative results is recommended, since the antigen present in the specimen may be below the detection limit of the test. Performed at [address] [place], [place] [id number] [phone]. Report Status FINAL 06/29/[address] [facility] Comment on above: Performed By: #### F LUAD ####[address] [place] [address] UA w/Reflex Cultureon 2017 Acetaminophen mass conc Negative Normal NEG [facility] Comment on above: Performed By: #### U AX, UMICAO ####[address] [place] [address] Bilirubin (direct) Negative Normal NEG [facility] Comment on above: Performed By: #### U AX, UMICAO ####[address] [place] [address] Hemoglobin mass conc (Bld) Negative Normal NEG [facility] Comment on above: Performed By: #### U AX, UMICAO ####[address] [place] [address] Nitrite,Ur Negative Normal NEG [facility] Comment on above: Performed By: #### U AX, UMICAO ####[address] [place] [address] Turbidity CLEAR Normal CLEAR [facility] Comment on above: Performed By: #### U AX, UMICAO ####[address] [place] [address] Urine, color YELLOW Normal YEL [facility] Comment on above: Performed By: #### U AX, UMICAO ####[address] [place] [address] Urine, glucose presence Negative Normal NEG [facility] Comment on above: Performed By: #### U AX, UMICAO ####[address] [place] [address] Urine, leukocyte esterase presence Negative Normal NEG [facility] Comment on above: Result Comment: Perf ormed at [address] [place] [address] Performed By: #### U AX, UMICAO ####[address] [place] [address] Urine, pH 5.5 [pH] Normal 5.0-9.0 [facility] Comment on above: Performed By: #### U AX, UMICAO ####[address] [place] [address] Urine, protein presence Negative Normal NEG [facility] Comment on above: Performed By: #### U AX, UMICAO ####[address] [place] [address] Urine, specific gravity >1.030 High 1.010-1.020 [facility] Comment on above: Performed By: #### U AX, UMICAO ####[address] [place] [address] Urobilinogen,Ur Normal Normal NORM [facility] Comment on above: Performed By: #### U AX, UMICAO ####[address] [place] [address] Comment NOT REPORTED Normal [facility] Comment on above: Performed By: #### U AX, UMICAO ####[address] [place] [address] Urinalysis,Microon 03-02-201 8 ----- Normal [facility] Comment on above: Performed By: #### U AX, UMICAO ####[address] [place] [address] Urine WBC's 2 TO 5 Normal 0-5 [facility] Comment on above: Performed By: #### U AX, UMICAO ####[address] [place] [address] Urine, epithelial cells in sediment 5 TO 10 Normal 0-25 [facility] Comment on above: Result Comment: Perf ormed at [address] [place] [address] Performed By: #### U AX, UMICAO ####[address] [place] [address] Urine, erythrocytes 0 TO 2 Normal 0-2 [facility] Comment on above: Performed By: #### U AX, UMICAO ####[address] [place] [address] Epithelial, Renal NOT REPORTED Normal 0 [facility] Comment on above: Performed By: #### U AX, UMICAO ####[address] [place] [address] Mucus Strands NOT REPORTED Normal NONE [facility] Comment on above: Performed By: #### U AX, UMICAO ####[address] [place] [address] Other Observations NOT REPORTED Normal NREQ [facility] Comment on above: Performed By: #### U AX, UMICAO ####[address] [place] [address] Trichomonas NOT REPORTED Normal NONE [facility] Comment on above: Performed By: #### U AX, UMICAO ####[address] [place] [address] Urine, amorphous sediment presence in sediment NOT REPORTED Normal NONE [facility] Comment on above: Performed By: #### U AX, UMICAO ####[address] [place] [address] Urine, bacteria in sediment NOT REPORTED Normal NONE [facility] Comment on above: Performed By: #### U AX, UMICAO ####[address] [place] [address] Urine, casts in sediment NOT REPORTED Normal [facility] Comment on above: Performed By: #### U AX, UMICAO ####[address] [place] [address] Urine, crystals in sediment NOT REPORTED Normal NONE [facility] Comment on above: Performed By: #### U AX, UMICAO ####[address] [place] [address] Urine, yeast presence in sediment NOT REPORTED Normal NONE [facility] Comment on above: Performed By: #### U AX, UMICAO ####[address] [place] [address] XR CHEST (2 VW)on 06-29-2017 XR CHEST (2 VW) REPORT: Chest PA and lateralINDICATION: FeverFINDINGS: Compared to 01/07/2016. The lungs are well expanded and clear bilaterally. No focal consolidation, pleural effusion or pneumothorax seen. Normal cardiac and mediastinal silhouettes. No free intraperitoneal air. Mild degenerative changes thoracic spine.Final report electronically signed by Ashley Lozano on 06/29/2017 3:51 PMIMPRESSION: Normal chestInterpreted by:LILY Gutierrezigned by:Ashley Lozano MD3/2/18Final result Normal [facility] Vital Signs Date Time Vital Sign Value Performing Clinician Faci lity 06-12-2023 09:10-0500 Body height 177.8 cm Shanice Thomas CLIENT SERVICES MANAGER Work Phone: [facility] 06-12-2023 09:10-0500 Body mass index (BMI) [Ratio] 35.5 kg/m2 Shanice Aichholz CLIENT SERVICES MANAGER Work Phone: [facility] 06-12-2023 09:10-0500 Body temperature 97.11 [degF] Shanice Aichholz CLIENT SERVICES MANAGER Work Phone: [facility] 06-12-2023 09:10-0500 Body weight 112.22 kg Shanice Aichholz CLIENT SERVICES MANAGER Work Phone: [facility] 06-12-2023 09:10-0500 Diastolic blood pressure 84 mm[Hg] Shanice Aichholz CLIENT SERVICES MANAGER Work Phone: [facility] 06-12-2023 09:10-0500 Heart rate 77 /min Shanice Aichholz CLIENT SERVICES MANAGER Work Phone: [facility] 06-12-2023 09:10-0500 Respiratory rate 18 /min Shanice Aichholz CLIENT SERVICES MANAGER Work Phone: [facility] 06-12-2023 09:10-0500 SaO2% (BldA) [Mass fraction] 99 % Shanice Aichholz CLIENT SERVICES MANAGER Work Phone: [facility] 06-12-2023 09:10-0500 Systolic blood pressure 128 mm[Hg] Shanice Aichholz CLIENT SERVICES MANAGER Work Phone: [facility] Healthcare Encounters Encounter Date Encounter Type Care Provider Facility Start: 06-12-2023 Bamboo flowsheet Shanice Aichholz CLIENT SERVICES MANAGER Work Phone: [facility] Start: 06-12-2023 Bamboo flowsheet Shanice Aichholz CLIENT SERVICES MANAGER Work Phone: [facility] Start: 06-12-2023 End: 06-12-2023 ambulatory SHANICE AICHHOLZ Not Available Start: 06-12-2023 End: 06-12-2023 Office outpatient visit 15 minutes Shanice Aichholz CLIENT SERVICES MANAGER Work Phone: [facility] Comment on above: Type 2 diabetes pam itus without complication, without long- term current use of insulin ([facility]) (Primary Dx); BMI 35.0-35.9,adult; GERD without esophagitis; Type 2 diabetes mellitus treated without insulin ([facility]) Start: 06-26-2022 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 Facil ity:H1 Start: 05-23-2022 End: 05-24-2022 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 MEMOHOLZ Facility:[facility] Start: 01-10-2022 End: 01-11-2022 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 MEMOHOLTiffani Facility:[facility]1 Start: 07-25-2021 End: 07-26-2021 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 Facility:[facility]1 Start: 06-29-2017 End: 06-29-2017 Emergency department patient visit RAYMOND MAR [facility] Procedures Date Procedure Procedure Detail Performing Clinician Start: 08-14-2022 Mammography Shanice Zaki lamb CLIENT SERVICES MANAGER Work Phone: Start: 06-29-2017 Radiologic exam ches t 2 views RAYMOND MAR Start: 06-29-2017 RAPID INFLUENZA A/B ANTIGENS RAYMOND MAR Start: 06-29-2017 Microscopic urinalysis RAYMOND MAR Start: 06-29-2017 UA W/REFLEX CULTURE MAR Ashley MAR Start: 06-29-2017 CBC WITH AUTO DIFFERENTIAL RAYMOND MAR Start: 06-29-2017 COMPREHENSIVE METABO LIC PANEL ARYMOND MAR Plan of Treatment Date Care Activity Detail Author Start: 03-27-2024 Urine screening for protein Diabetes: Urine Protein Screening [facility] Start: 09-11-2023 End: 09-11-2023 Patient encounter procedure 09/11/2023 9:00 AM EDT Office Visit [facility] [address] [place] [address] Shanice Thomas NP [address] [place] [id number] [facility] Start: 08-29-2023 Glaucoma screening Diabetes: R etinopathy Screening [facility] Comment on above: Postponed from 04/28 (Other Medical Reasons) Start: 08-15-2023 Screening for malign ant neoplasm of breast Mammogram [facility] Start: 06-27-2023 Hemoglobin A1c measurement Diabetes: Hemoglobin A1C [facility] Start: 06-12-2023 End: 06-12-2024 Hemoglobin A1c measurement Hemoglobin A1c Lab Routine Type 2 diabetes mellitus without complication, without long-term current use of insulin ([facility]) Expected: 06/12/2023 (Approximate), Expires: 06/12/2024 [facility] Healthcare Work Phone: Comment on above: Expected: 06/12/2023 (Approximate), Expires: 06/12/2024 Start: 12-29-2022 Influenza vaccination Influenza Vacc ine (#1) [facility] Start: 2010 Screening for malign ant neoplasm of cervix HPV/Cotest [facility] Start: 2001 Screening for malign ant neoplasm of cervix Pap Smear [facility] Start: 1990 Glaucoma screening Diabetes: R etinopathy Screening [facility] Immunizations Immunization Date Immunization Notes Care Provider Fa jose juan 10-22-2017 tetanus toxoid, redu mehran diphtheria toxoid, and acellular pertussis vaccine, adsorbed Shanice Thomas CLIENT SERVICES MANAGER Work Phone: [facility] Healthcare Payers Date Payer Category Payer Unknown [employer] [id number] 2023-Present [address] [place] [address] [id number] 2023 Unknown [id number] 2022 Private Health Insurance [facility] [id number] 2022-Present [address] [address] [place] [address] [id number] 2022 Private Health Insurance [id number] 2014 Unknown [id number] 1980 Unknown [id number] 1980 Unknown [id number] 1980 Unknown [id number] 1980 Unknown [id number] 1980 Unknown [id number] 1959 Medicaid [id number] Social History Date Type Detail Facility Start: 05-30-2023 Tobacco smoking status NHIS Never sm oked tobacco [facility] Start: 06-12-2023 Alcohol intake Ex-drinker (finding) [facility] Start: 05-30-2023 End: 06-12-2023 History of Social function [facility] Start: 05-30-2023 End: 06-12-2023 Tobacco use panel [facility] Start: 1980 Sex Assigned At Not on file [facility] Medical Equipment Procedure Code Equipment Code Equipment Origin al Text Equipment Identifier Dates 1 each by Other route if needed. [id number] Start: 07-25-2022 End: 06-12-2023 1 each by Other route in the morning and 1 each at noon and 1 each in the evening. Take before meals. [id number] Start: 07-31-2022 End: 06-12-2023 1 each by Other route in the morning. 1 each by Other route if needed.. [id number] Start: 06-12-2023 End: 09-20-2023 1 each by Other route in the morning. [id number] Start: 06-12-2023 End: 09-20-2023 History of Present illness Narrative 06-12-2023 Shanice Thomas NP - 06/12/2023 9:39 AM CHRISTOPHER REID - 06/12/2023 9:00 AM Derick Tohmas NP - 06/12/2023 9:00 AM EST Note Date & Type Note Facility 06-12-2023 History of Presen t illness Narrative Associated Problem(s): Type 2 diabetes mellitus without complication, without long-term current use of insulin ([facility]) Check blood sugars daily, notify if <70 or >200. Take medications (pills or insulin) as directed. Monitor for s/s of hypoglycemia (sweaty, dizziness, nausea, vomiting, or shakiness). Watch for increase in thirst, urination, or appetite. Inspect feet frequently monitoring for open wounds , and also recommend yearly eye exam. Pt should attempt to remain as physically active as chronic conditions allow, as well as trying to follow a diet low in carbohydrates, and simple sugars. 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 Latha Giordano is a 43 y.o. female presents with chief complaint of No chief complaint on file. HPI: Diabetes She presents for her follow-up diabetic visit. She has type 2 diabetes mellitus. Her disease course has been stable. There are no hypoglycemic associated symptoms. Pertinent negatives for hypoglycemia include no dizziness, headaches, nervousness/anxiousness, seizures or tremors. There are no diabetic associated symptoms. Pertinent negatives for diabetes include no chest pain, no polydipsia, no polyphagia and no polyuria. There are no hypoglycemic complications. Symptoms are stable. There are no diabetic complications. Risk factors for coronary artery disease include diabetes mellitus, dyslipidemia, obesity and sedentary lifestyle. Current diabetic treatments: trulicity. She is compliant with treatment all of the time. She never participates in exercise. Her overall blood glucose range is 70-90 mg/dl. An HUGO inhibitor/angiotensin II receptor cristina is being taken. Eye exam is not current. SUBJECTIVE: MEDICATIONS: Current Outpatient Medications Medication Instructions atorvastatin (LIPITOR) 10 mg, Oral, Daily cetirizine (ZYRTEC) 10 mg, Oral, Daily FeroSul 325 mg, Oral, Daily with breakfast ketoconazole (NIZOral) 2 % shampoo 1 application , Topical, 2 times weekly lisinopril 5 mg, Oral, Daily metFORMIN (GLUCOPHAGE) 500 mg, Oral, 2 times daily omeprazole (PRILOSEC) 40 mg, Oral, Daily before breakfast True Metrix Blood Glucose Test test strip 1 each, Other, As needed TRUEplus Lancets 30G misc 1 each, Other, 3 times daily before meals Trulicity 0.75 mg, Subcutaneous, Weekly ALLERGIES: Allergies Allergen Reactions Tylenol [Acetaminophen] GI intolerance Nausea and vomiting REVIEW OF SYMPTOMS: Review of Systems Constitutional: Negative for appetite change, chills and fever. HENT: Negative for congestion, ear pain and sore throat. Eyes: Negative for pain, discharge, redness and visual disturbance. Respiratory: Negative for cough, shortness of breath and wheezing. Cardiovascular: Negative for chest pain, palpitations and leg swelling. Gastrointestinal: Negative for abdominal pain, blood in stool, constipation, diarrhea, nausea and vomiting. Genitourinary: Negative for difficulty urinating, dysuria and frequency. Musculoskeletal: Negative for arthralgias, back pain, joint swelling and myalgias. Foot pain arch of right foot Skin: Negative for rash and wound. Neurological: Negative for dizziness, tremors, seizures, syncope and headaches. Psychiatric/Behavioral: Negative for behavioral problems, self-injury and suicidal ideas. The patient is not nervous/anxious. Hematological: Does not bruise/bleed easily. Endocrine: Negative for polydipsia, polyphagia and polyuria. Allergic/Immunologic: Negative for environmental allergies and food allergies. PAST MEDICAL HISTORY Past Medical History: Diagnosis Date Abnormal thyroid function test Allergic rhinitis Dyslipidemia (CMS/HCC) Elevated liver function tests GERD without esophagitis Iron deficiency Obesity with body mass index (BMI) of 30.0 to 39.9 Umbilical hernia Past Surgical History: Procedure Laterality Date OTHER SURGICAL HISTORY Rodding and plating left tibia approx 2005 family history is not on file. OBJECTIVE: Visit Vitals BP 128/84 (BP Location: Left arm, Patient Position: Sitting, BP Cuff Size: Large adult long) Pulse 77 Temp 97.1 F (Temporal) Resp 18 Ht 5' 10 Wt 247 lb 6.4 oz SpO2 99% BMI 35.50 kg/m Smoking Status Never BSA 2.35 m Physical Exam Vitals reviewed. Constitutional: General: She is not in acute distress. Appearance: Normal appearance. HENT: Head: Normocephalic and atraumatic. Right Ear: External ear normal. Left Ear: External ear normal. Nose: Nose normal. Mouth/Throat: Mouth: Mucous membranes are moist. Eyes: Extraocular Movements: Extraocular movements intact. Conjunctiva/sclera: Conjunctivae normal. Neck: Vascular: No carotid bruit. Cardiovascular: Rate and Rhythm: Normal rate and regular rhythm. Pulses: Normal pulses. Heart sounds: Normal heart sounds. Pulmonary: Effort: Pulmonary effort is normal. Breath sounds: Normal breath sounds. Abdominal: General: Bowel sounds are normal. There is no distension. Palpations: Abdomen is soft. There is no mass. Tenderness: There is no abdominal tenderness. Musculoskeletal: General: Normal range of motion. Cervical back: Neck supple. Right lower leg: No edema. Left lower leg: No edema. Comments: No open sores bilat feet, more a flat footed person Callouses noted, mild tenderness to arch of right foot Skin: General: Skin is warm and dry. Capillary Refill: Capillary refill takes 2 to 3 seconds. Findings: No rash. Neurological: General: No focal deficit present. Mental Status: She is alert and oriented to person, place, and time. Psychiatric: Mood and Affect: Mood normal. Behavior: Behavior normal. Thought Content: Thought content normal. Judgment: Judgment normal. ASSESSMENT AND PLAN: No follow-ups on file. Problem List Items Addressed This Visit Type 2 diabetes mellitus without complication, without long-term current use of insulin ([facility]) Check blood sugars daily, notify if <70 or >200. Take medications (pills or insulin) as directed. Monitor for s/s of hypoglycemia (sweaty, dizziness, nausea, vomiting, or shakiness). Watch for increase in thirst, urination, or appetite. Inspect feet frequently monitoring for open wounds , and also recommend yearly eye exam. Pt should attempt to remain as physically active as chronic conditions allow, as well as trying to follow a diet low in carbohydrates, and simple sugars. At this point she wants to stay off metfromin d/t reads, if she trends 110 or higher restart, otherwise [facility] Relevant Orders Hemoglobin A1c BMI 35.0-35.9,adult GERD without esophagitis - Primary documented in this encounter [facility] Evaluation note Note Date & Type Note Facility Evaluation note Diagnosis Type 2 diabetes mellitus without complication, without long-term current use of insulin ([facility] Primary BMI 35.0-35.9,adult GERD without esophagitis Esophageal reflux Type 2 diabetes mellitus treated without insulin ([facility]) documented in this encounter [facility] Summary Purpose Family History No Family History Records FoundNo Family History Records FoundNo Family History Records Found Advance Directives No Advanced Directives Records FoundNo Advanced Directives Records FoundNo Advanced Directives Records Found Additional Source Comments INFORMATION SOURCE (unrecogn ized section and content) DATE CREATED AUTHOR 10/19/2017 [facility] DATE CREATED AUTHOR AUTHOR'S ORGANIZ ATION 07/15/2022 [facility] DATE CREATED AUTHOR AUTHOR'S ORGANIZ ATION 06/13/2023 [facility] Care Teams (unrecognized sec tion and content) Grocery Checker Relationship Specialty Start Date End Date Raymond Mar MD [address] [place] [id number] PCP - General Family Medicine 05/30/23 Shanice Thomas NP [address] [place] [id number] Primary Care Provider Nurse Practitioner 11/24/22 [employer]cery [employer]er Relationship Specialty Start Date End Date Raymond Mar MD [address] [place] [id number] PCP - General Family Medicine 05/30/23 Shanice Thomas NP [address] [place] [id number] Primary Care Provider Nurse Practitioner 11/24/22 FOR RECORDS PERTAINING TO PATIENTS WHO ARE OR HAVE BEEN ENROLLED IN A CHEMICAL DEPENDENCY/SUBSTANCEABUSE PROGRAM, SOME INFORMATION MAY BE OMITTED. This clinical summary was aggregated from multiple sources. Caution should be exercised in using it in the provision of clinical care. This summary normalizes information from multiple sources, and as a consequence, information in this document may materially change the coding, format and clinical context of patient data. In addition, data may be omitted in some cases. CLINICAL DECISIONS SHOULD BE BASED ON THE PRIMARY CLINICAL RECORDS. [facility] [employer] [facility]. provides no warranty or guarantee of the accuracy or completeness of information in this document.
[2023-07-06 08:07] LABS: Estimated Average Glucose 126 mg/dL
== END 2023-07-06 07:39 | disposition home or self-care (01) ==
LOC: LAB 07:39
PROVIDERS: PCP Family Medicine; Visit Provider Nurse Practitioner
DX: E11.9 Type 2 diabetes mellitus without complications (principal)
CPT/HCPCS: 36415; 83036

== ENCOUNTER 2024-01-30 10:19 | Outpatient (OUT) | payer OTHER, SELFPAY ==
[2024-01-30 10:43] LABS: Basophils Absolute Auto 0.1 10^3/uL (0.0-0.1); Basophils Percent Auto 1.5 % (0.2-2.0); Eosinophils Absolute Auto 0.2 10^3/uL (0.0-0.7); Eosinophils Percent Auto 2.1 % (0.9-7.0); Hematocrit 45.9 % (36.0-48.0); Hemoglobin 14.9 g/dL (12.0-16.0); Immature Granulocytes Abs Auto 0.02 10^3/uL (0.00-0.03); Immature Granulocytes Pct Auto 0.2 % (0.0-0.5); Lymphocytes Absolute Auto 2.1 10^3/uL (1.2-3.8); Lymphocytes Percent Auto 24.9 % (20.5-60.0); Mean Corpuscular HGB Conc 32.5 g/dL (29.9-35.2); Mean Corpuscular Hemoglobin 28.5 pg (26.7-34.0); Mean Corpuscular Volume 87.8 fL (81.0-99.0); Mean Platelet Volume 9.9 fL (9.5-13.5); Monocytes Absolute Auto 0.4 10^3/uL (0.3-0.8); Monocytes Percent Auto 4.4 % (1.7-12.0); Neutrophils Absolute Auto 5.8 10^3/uL (1.4-6.5); Neutrophils Percent Auto 66.9 % (43.0-75.0); Platelet Count 266 10^3/uL (150-450); Red Blood Count 5.23 10^6/uL (4.20-5.40); Red Cell Distribution Width 12.5 % (11.0-15.0); White Blood Count 8.6 10^3/uL (4.0-11.0)
[2024-01-30 10:44] LABS: Bilirubin Urine NEGATIVE (NEGATIVE); Blood Urine NEGATIVE (NEGATIVE); Clarity Urine CLEAR (CLEAR); Color Urine LT. YELLOW (YELLOW); Glucose Urine UA NEGATIVE (NEGATIVE); Ketones Urine NEGATIVE (NEGATIVE); Leukocyte Esterase Urine NEGATIVE (NEGATIVE); Nitrite Urine NEGATIVE (NEGATIVE); Protein Urine NEGATIVE (NEG/TRACE); Urine Microscopic Indicated NO; Urobilinogen Urine 0.2 EU/dL (0.2-1.0)
[2024-01-30 11:06] LABS: Estimated Average Glucose 128 mg/dL; Glycohemoglobin A1C 6.1 % (4.5-6.2)
[2024-01-30 11:34] LABS: Creatinine Urine Random 86.82 mg/dL (20.00-300.00); Microalbum Creatinine Ratio Ur 14.9 mg/g (0.0-29.9); Microalbumin Urine Random <1.3 mg/dL (<=30.0)
[2024-01-30 11:48] LABS: Free T4 0.78 ng/dL (0.76-1.46)
[2024-01-30 11:51] LABS: Alanine Aminotransferase 74 U/L (14-59); Albumin Level 3.9 g/dL (3.4-5.0); Alkaline Phosphatase 79 U/L (46-116); Anion Gap 12.6; Aspartate Amino Transferase 31 U/L (15-37); BUN Creatinine Ratio 14.8; Bilirubin Total 0.5 mg/dL (0.2-1.0); Calcium 9.7 mg/dL (8.5-10.1); Carbon Dioxide 25.8 mmol/L (21.0-32.0); Chloride 102 mmol/L (98-107); Chol HDL Ratio 4.4; Cholesterol 166 mg/dL (<=200); Estimated GFR (African America >60 (>=60 mL/min/1.73m^2); Estimated GFR (Non-African Ame >60 (>=60 mL/min/1.73m^2); Globulin 3.9 g/dL; Glucose 130 mg/dL (74-106); HDL Cholesterol 38 mg/dL (40-60); Potassium 4.4 mmol/L (3.5-5.1); Sodium 136 mmol/L (136-145); Thyroid Stimulating Hormone 1.521 uIU/mL (0.358-3.740); Total Protein 7.8 g/dL (6.4-8.2); Triglycerides 182 mg/dL (<=150); VLDL CHOLESTEROL 36.4 mg/dL
== END 2024-01-30 10:20 | disposition home or self-care (01) ==
PROVIDERS: PCP Nurse Practitioner; Visit Provider Nurse Practitioner
DX: K21.9 Gastro-esophageal reflux disease without esophagitis (principal); E61.1 Iron deficiency; E11.9 Type 2 diabetes mellitus without complications; R94.6 Abnormal results of thyroid function studies
CPT/HCPCS: 36415; 80053; 80061; 81003; 82043; 82570; 83036; 83540; 84439; 84443; 85025

== ENCOUNTER 2024-08-25 11:04 | Outpatient (OUT) | payer OTHER, SELFPAY ==
[2024-08-25 12:02] LABS: Alanine Aminotransferase 57 U/L (14-59); Albumin Globulin Ratio 1.1; Albumin Level 3.9 g/dL (3.4-5.0); Alkaline Phosphatase 74 U/L (46-116); Anion Gap 11.6; Aspartate Amino Transferase 27 U/L (15-37); BUN Creatinine Ratio 8.3; Bilirubin Total 0.7 mg/dL (0.2-1.0); Calcium 9.5 mg/dL (8.5-10.1); Carbon Dioxide 29.5 mmol/L (21.0-32.0); Chloride 103 mmol/L (98-107); Estimated GFR (African America >60 (>=60 mL/min/1.73m^2); Estimated GFR (Non-African Ame 55 (>=60 mL/min/1.73m^2); Globulin 3.7 g/dL; Glucose 99 mg/dL (74-106); Potassium 4.1 mmol/L (3.5-5.1); Sodium 140 mmol/L (136-145); Total Protein 7.6 g/dL (6.4-8.2)
== END 2024-08-25 11:05 | disposition home or self-care (01) ==
LOC: LAB 11:07
PROVIDERS: PCP Nurse Practitioner; Visit Provider Nurse Practitioner
DX: I10 Essential (primary) hypertension (principal); E11.9 Type 2 diabetes mellitus without complications
CPT/HCPCS: 36415; 80053